=== PATIENT | male | born 1970 | race Caucasian/White ===

== ENCOUNTER 2024-07-19 08:06 | Inpatient (IN) ==
--- NOTE | 2024-07-19 08:42 | Emergency Department Note ---
Impression & Plan Alcohol withdrawal, Alcohol use, Homeless, Anxiety ED Provider Note NAME: JENIFFER VAZ AGE: 54 SEX: M : 1970 ARRIVES VIA: Walk-In INFORMANT: Patient, ED PROVIDER(S): Vincent Schmitz DO CHIEF COMPLAINT: Anxiety HPI: The patient is a 54-year-old male who presented to the emergency department for an evaluation of anxiety. The patient states that he was seen in our facility last evening for similar complaints. He does live in a longterm. He is homeless at this time. The patient does not take any medications but does use marijuana. The patient denies having any chest pain or difficulty breathing but does complain of anxiety as well as difficulty thinking. He states he wants to cut himself but he denies having any specific suicidal ideation. The patient denies hearing any voices. The patient drinks alcohol daily. He is also had issues with taking benzodiazepines chronically. The patient was seen in our facility last evening and discharged but he sat in our waiting room and then check back in because he is states his symptoms are getting worse. ROS: See above HPI for pertinent positives & negatives. A total of 10 systems reviewed and were otherwise negative. PAST MEDICAL HISTORY: See Below PAST SURGICAL HISTORY: See Below FAMILY HISTORY: See Below SOCIAL HISTORY: See Below HOME MEDICATIONS: See Below ALLERGIES: See Below VITALS: See Below PHYSICAL EXAMINATION: GENERAL: The patient is awake and alert. The patient is anxious appearing. EYES: The conjunctivae are clear. The pupils are round and reactive. EARS, NOSE, MOUTH AND THROAT: The nose is without any evidence of any deformity. NECK: The neck is nontender and supple. RESPIRATORY: Normal respiratory effort is noted there is no evidence of wheezing rhonchi or rales CARDIOVASCULAR: Tachycardic and regular heart sounds were noted to auscultation. GASTROINTESTINAL: The abdomen is soft. Abdomen is nontender. MUSCULOSKELETAL/EXTREMITIES: There is no evidence of gross deformity full range of motion is noted in the hips and shoulders. SKIN: There is no obvious evidence of any rash. There are no petechiae, pallor or cyanosis noted. NEUROLOGIC: Patient is awake alert and oriented x3 strength is symmetric patellar reflexes are 2+ bilaterally PSYCH: The patient makes poor eye contact mostly evaluation. The patient's affect is animated. The patient is very tangential with his thought process. The patient is currently denying any active suicidal ideation. MEDICAL DECISION MAKING: The patient is a 54-year-old male who presented to the emergency department for an evaluation of anxiety. The patient has mental health history. He also has a history of alcohol abuse. The patient was seen in our facility overnight no specific needs were identified and the patient was able to be discharged to home. The patient did not go home but stayed in our waiting room. He started to develop trouble with anxiety and checked back into the emergency department. He does appear to have signs of early alcohol withdrawal. He was treated in usual fashion. On reevaluation he was feeling much better. The patient was felt to be a good candidate for inpatient treatment. I discussed his condition with the on-call [facility]ist. They have agreed to evaluate the patient in the emergency department. Triage Nursing notes reviewed. Prior medical records reviewed Vital Signs: reviewed and remarkable for no significant abnormalities Differential diagnosis: Mood disorder, infection, hypoglycemia, electrolyte abnormalities, cardiac sources, intracerebral event, toxicologic, trauma, neurologic, as well as other pathologies. ER treatment provided: See below Diagnostics interpreted by me: ECG: EKG was obtained in the emergency department. My interpretation is normal sinus rhythm at 83 bpm. There is no acute ST segment abnormalities noted. There was no ectopy. This was compared to a tracing from November Cardiac Monitoring: An order was placed for continuous cardiac monitoring. The monitor shows a rate of 75 bpm with sinus rhythm.. Laboratory studies: As stated above and show below. Imaging studies: See below. Radiographic imaging was reviewed by myself Consultation(s): I discussed this case with Dr. Gonsales who is on-call for the [facility] group. Past Med/Surg History Problem List Anxiety (Acute) Thoughts of self harm Alcohol withdrawal (Acute) Homeless (Acute) Alcohol use (Acute) Medical History Dental abscess Dental caries Surgical History H/O tooth extraction Social History Smoking Status: Current every day smoker Hx Alcohol Use: Yes Preferred Language: Uruguayan marital status: Single current occupational status: unemployed Feels Safe at Home: Yes Gender Identity: Male Allergies Allergies Allergy/AdvReac Type Severity Reaction Status Date / Time No Known Allergies Allergy Verified 08/31/22 18:33 Home Meds Home Medications Medication Instructions Recorded Confirmed No Known Home Medications 07/18/24 07/19/24 Results & Data (ED) Vital Signs Vital Signs - 24 hr 07/19/24 08:07 07/19/24 08:40 07/19/24 08:58 Temperature 36.5 C Temperature Source Temporal Artery Scan Pulse Rate 109 H 86 Pulse Rate [Apical] 92 H Pulse Rate from SpO2 Sensor Pulse Rhythm Regular Respiratory Rate 18 14 19 Respiratory Effort / Characteristics Non-Labored Spontaneous Respiratory Depth Normal Blood Pressure 169/112 H Blood Pressure [Left Arm] 166/99 H Blood Pressure Mean 131 Blood Pressure Mean [Left Arm] 121 Blood Pressure Position [Left Arm] Sitting Pulse Oximetry 100 94 Oxygen Delivery Method Room Air Room Air Sepsis Recent Fever Within 48 Hours No Sepsis New/Unexplained Change in Mental Status N/A Sepsis Action Taken by Nursing No Action Required 07/19/24 09:06 07/19/24 10:42 07/19/24 11:00 Temperature Temperature Source Pulse Rate 94 H 73 Pulse Rate [Apical] 75 Pulse Rate from SpO2 Sensor 75 Pulse Rhythm Respiratory Rate 20 15 Respiratory Effort / Characteristics Non-Labored Spontaneous Respiratory Depth Normal Blood Pressure 137/93 Blood Pressure [Left Arm] 133/100 Blood Pressure Mean 107 Blood Pressure Mean [Left Arm] 111 Blood Pressure Position [Left Arm] Semi-fowlers Pulse Oximetry 97 98 Oxygen Delivery Method Room Air Room Air Sepsis Recent Fever Within 48 Hours Sepsis New/Unexplained Change in Mental Status Sepsis Action Taken by Usp Medications Current Medication List: was personally reviewed by me Laboratory Data Attestation: I reviewed the patient's lab results. 07/19/24 08:45 07/19/24 08:45 Lab Results 07/19/24 07/19/24 Range/Units 08:25 08:45 WBC 8.49 (4.8-10.8) K/ul RBC 5.27 (4.70-6.10) M/uL Hgb 15.8 (14.0-18.0) g/dl Hct 45.8 (42.0-52.0) % MCV 86.9 (80.0-100.0) fL MCH 30.0 (25.0-34.0) pg MCHC 34.5 (32.0-36.0) g/dL RDW Std Deviation 39.8 (36.4-46.3) fL RDW Coeff of [place] 12.5 (11.5-14.5) % Plt Count 326 (130-400) K/uL MPV 9.6 (9.4-12.4) fL Immature Gran % (Auto) 0.4 % Neut % (Auto) 67.6 % Lymph % (Auto) 25.0 % [place] % (Auto) 6.0 % Eos % (Auto) 0.6 % Baso % (Auto) 0.4 % Neut # (Auto) 5.75 (1.40-6.50) K/uL Lymph # (Auto) 2.12 (1.20-3.40) K/uL [place]ster # (Auto) 0.51 (0.11-0.59) K/uL Eos # (Auto) 0.05 (0.00-0.50) K/uL Baso # (Auto) 0.03 (0.00-0.20) K/uL Immature Gran # (Auto) 0.03 (0.01-0.20) K/uL PT 10.4 (9.0-12.0) Seconds INR 1.0 (0.9-1.1) Sodium 139 (136-145) mmol/L Potassium 3.9 (3.5-5.1) mmol/L Chloride 103 (98-107) mmol/L Carbon Dioxide 25 (21-32) mmol/L Anion Gap 11 (3-11) BUN 14 (6-23) mg/dl Creatinine 0.85 (0.6-1.4) mg/dl Est Cr Clr Drug Dosing 114.9 ml/min eGFR 104.55 BUN/Creatinine Ratio 16.5 (10-20) Glucose 91 (70-99(Fasting)) mg/dl Calcium 9.9 (8.6-10.3) mg/dl Magnesium 2.0 (1.7-2.4) mg/dl Total Bilirubin 1.0 (0.2-1.0) mg/dl AST 18 (13-39) U/L ALT 22 (7-52) U/L Alkaline Phosphatase 62 (34-104) U/L Total Creatine Kinase 61 (30-223) U/L Troponin I High Sens 3.2 (0-20) pg/ml Total Protein 8.0 (6.0-8.3) gm/dl Albumin 4.9 (3.4-5.0) gm/dl Globulin 3.1 (2.5-4.0) gm/dl Albumin/Globulin Ratio 1.6 (0.9-2) Lipase 18 (11-82) U/L Urine Color Dark Yellow Urine Appearance Clear (Clear) Urine pH 5.5 (4.5-7.5) Ur Specific [place] 1.026 (1.000-1.030) Urine Protein Trace H (Negative) Urine Glucose (UA) Negative (Negative) Urine Ketones 4+ H (Negative) Urine Blood Negative (Negative) Urine Nitrite Negative (Negative) Urine Bilirubin Negative (Negative) Urine Urobilinogen Negative (Negative) Ur Leukocyte Esterase Negative (Negative) Urine WBC (Auto) 0-5 (0-5) /hpf Urine RBC (Auto) 0-2 (0-2) /hpf U Hyaline Cast (Auto) 0-2 (0-2) /lpf U Epithel Cells (Auto) 0-2 (0-2) /hpf Urine Bacteria (Auto) None Seen (None Seen) Salicylates < 3.0 L (3.0-30) mg/dl Urine Opiates Screen Neg (Neg) Ur Methadone, Qual Neg (Neg) Urine Fentanyl Screen Neg (Neg) Acetaminophen < 3 L (10-30) ug/ml Urine Barbiturates Neg (Neg) Ur Phencyclidine (PCP) Neg (Neg) U Amphetamin/Meth Scrn Neg (Neg) MDMA (Ecstasy) Screen Neg (Neg) U Benzodiazepines Scrn Neg (Neg) Ur Cocaine Metabolite Neg (Neg) U Marijuana (THC) Screen Pos H (Neg) Ethyl Alcohol mg/dL < 10.0 (<10.0) mg/dl SARS-CoV-2, RNA, NAAT NEGATIVE (NEGATIVE) Administered Medications Discontinued Medications Sodium Chloride (Nss) 1,000 mls @ 999 mls/hr IV .Q1H1M ONE Stop: 07/19/24 09:35 Last Infusion: 07/19/24 09:51 Dose: Infused Documented By: Admin: 07/19/24 08:55 Dose: 999 mls/hr Documented By: MANJIT Thiamine HCl 200 mg/ Sodium (Chloride) 52 mls @ 210 mls/hr IV NOW STA Stop: 07/19/24 08:49 Last Infusion: 07/19/24 09:51 Dose: Infused Documented By: Admin: 07/19/24 09:27 Dose: 210 mls/hr Documented By: MANJIT Lorazepam (Lorazepam 1 Mg/1 Ml Syr Ed Inj Use) 1 mg IV ONE STA Stop: 07/19/24 08:36 Last Admin: 07/19/24 08:55 Dose: 1 mg Documented By: MANJIT Imaging Data Attestation: I personally reviewed and interpreted this imaging study as follows: My Impression: 1 view chest x-ray was obtained in the emergency department. My interpretation is no free air or definite infiltrate, final report below. Radiologist's Impression: Chest X-Ray 07/19/24 08:35 XR chest 1V portable CLINICAL HISTORY: medical clearance COMPARISON STUDY: Chest CT March 23, 2022. Chest radiograph May 30, 2024. FINDINGS: Lung volumes are normal. Lungs are clear. There is no pneumothorax or pleural effusion. Cardiac size is normal. Mediastinal contours are normal. There is no evidence for pulmonary edema. Multiple old right rib fractures are incidentally noted. IMPRESSION: No acute cardiopulmonary findings. ACT 112: Negative or not required by law. Electronically signed by: Rafa Soto M.D. 07/19/2024 9:16 AM Discharge Plan Visit Data Chief Complaint: Mental Health Evaluation Stated Complaint: MENTAL HEALTH EVAL/CRISIS ED Provider: Vincent Schmitz Discharge Problem: Alcohol withdrawal, Alcohol use, Homeless, Anxiety Patient Disposition: Being Evaluated by Hospitalist Forms Stand Alone Forms: [facility], Suicide Prevention Resources Prescriptions Prescriptions: No Action No Known Home Medications Referrals Referrals: Shannon Andrade [Primary Care Provider] -
[2024-07-19] MEDS: SODIUM CHLORIDE 0.9% 1,000 ML IV ONE (08:55)
[2024-07-19] MEDS: LORazepam 1 MG/1 ML SYR ED Inj Use IV STA (08:55)
[2024-07-19 09:17] LABS: Appearance Urine Clear (Clear); Bacteria Urine Automated None Seen (None Seen); Bilirubin Urine Negative (Negative); Blood Urine Negative (Negative); Cast Urine Automated 0-2 /lpf (0-2); Color Urine Dark Yellow; Epithelial Cell Urine Auto 0-2 /hpf (0-2); Glucose Urine UA Negative (Negative); Ketones Urine 4+ (Negative); Leukocyte Esterase Urine Negative (Negative); Nitrite Urine Negative (Negative); Protein Urine Trace (Negative); RBC Urine Automated 0-2 /hpf (0-2); Specific Gravity Urine 1.026 (1.000-1.030); Urobilinogen Urine Negative (Negative); WBC Urine Automated 0-5 /hpf (0-5); pH Urine 5.5 (4.5-7.5)
--- NOTE | 2024-07-19 09:18 | XRay Report ---
XR chest 1V portable CLINICAL HISTORY: medical clearance COMPARISON STUDY: Chest CT March 23, 2022. Chest radiograph May 30, 2024. FINDINGS: Lung volumes are normal. Lungs are clear. There is no pneumothorax or pleural effusion. Car diac size is normal. Mediastinal contours are normal. There is no evidence for pulmonary edema. Multi ple old right rib fractures are incidentally noted. IMPRESSION: No acute cardiopulmonary findings. ACT 112: Negative or not required by law. Electronically signed by: Rafa Soto M.D. 07/19/2024 9:16 AM
[2024-07-19 09:20] LABS: Basophils # (auto) 0.03 K/uL (0.00-0.20); Basophils % (auto) 0.4 %; Eosinophils # (auto) 0.05 K/uL (0.00-0.50); Eosinophils % (auto) 0.6 %; Hematocrit (blood only) 45.8 % (42.0-52.0); Hemoglobin 15.8 g/dl (14.0-18.0); Immature Granulocytes # (auto) 0.03 K/uL (0.01-0.20); Immature Granulocytes % (auto) 0.4 %; Lymphocytes # (auto) 2.12 K/uL (1.20-3.40); Mean Corpuscular Hgb Conc 34.5 g/dL (32.0-36.0); Mean Corpuscular Volume 86.9 fL (80.0-100.0); Mean Platelet Volume 9.6 fL (9.4-12.4); Monocytes # (auto) 0.51 K/uL (0.11-0.59); Neutrophils # (auto) 5.75 K/uL (1.40-6.50); Neutrophils % (auto) 67.6 %; Platelet Count 326 K/uL (130-400); RDW Coefficient of Variation 12.5 % (11.5-14.5); RDW Standard Deviation 39.8 fL (36.4-46.3); Red Blood Count 5.27 M/uL (4.70-6.10); White Blood Count 8.49 K/ul (4.8-10.8)
[2024-07-19] MEDS: THIAMINE HCL 200 MG in SODIUM CHLORIDE 0.9% 50 ML IV STA (09:27)
[2024-07-19 09:37] LABS: Albumin Globulin Ratio 1.6 (0.9-2); Albumin Level 4.9 gm/dl (3.4-5.0); BUN Creatinine Ratio 16.5 (10-20); Calcium 9.9 mg/dl (8.6-10.3); Creatinine Clr Calc Pharmacy 114.9 ml/min; Globulin 3.1 gm/dl (2.5-4.0); Potassium 3.9 mmol/L (3.5-5.1)
[2024-07-19 09:42] LABS: Troponin I High Sensitivity 3.2 pg/ml (0-20)
[2024-07-19 09:45] LABS: Prothrombin Time 10.4 Seconds (9.0-12.0)
[2024-07-19 09:57] LABS: Acetaminophen < 3 ug/ml (10-30); Salicylate < 3.0 mg/dl (3.0-30)
[2024-07-19 09:57] LABS: Amphetamines+Metham, Urine Neg (Neg); Barbiturates, Urine Neg (Neg); Benzodiazepine, Urine Neg (Neg); Cocaine, Urine Neg (Neg); Fentanyl, Urine Neg (Neg); MDMA (Ecstacy), Urine Neg (Neg); Marijuana, Urine Pos (Neg); Methadone, Urine Neg (Neg); Opiate, Urine Neg (Neg); Phencyclidine, Urine Neg (Neg)
--- NOTE | 2024-07-19 11:23 | History & Physical Report ---
Date of Service July 19, 2024 Assessment & Plan (1) Alcohol withdrawal: Plan: Currently appears non diaphoretic and no significant agitation or overly anxious, no hallucinations however patient seen after 1mg Lorazepam IV given by ER provider who assessed he was in withdrawal at that time with hypertension Patient also tells me he drinks 2L of vodka a day which puts him at significant risk of withdrawal although this is different from the CM note from last night when he said he was not drinking every day and would just drink 3-4 Four Lokos occasionally At this point lorazepam has been given prior to my assessment and current story he gives of significantly high alcohol use will admit him overnight on the at risk lorazepam protocol for withdrawal Do not give lorazepam if AWSS < 6 (2) Thoughts of self harm: Plan: He denies this to me but mentioned in the triage/ER notes therefore will have psychiatry assess him for both this and his ongoing anxiety Plan VTE Prophylaxis - low risk Diet - regular safe tray Disposition - admit to med/surg History of Present Illness Chief Complaint: Anxiety/agitation Primary Care Provider: Shannon Andrade Trell Sweeney is a 54-year-old male who presents to the ER with concerns for alcohol withdrawal. He reports drinking 2L vodka a day and having agitation and anxiety today after his last drink was yesterday afternoon. He was actually in the ER last night originally and per briefcase sewer notes at that time he states that he does not drink every day but did have Four Liang that day. He requested inpatient rehab although was informed that this was not warranted as he was only drinking 1/day. He changes story to say he might have 3-4 drinks on some days but denied to drinking alcohol every day. He was not in withdrawal at that time and was advised to follow-up as an outpatient for alcohol services. He did not meet criteria for inpatient psychiatric treatment. He was discharged but stayed in the waiting area of the emergency room. He then represented with a concern for anxiety and worsening symptoms. He was seen by the ER provider and said that he does drink alcohol daily. He also mentioned issues with taking benzodiazepines chronically although he denies this to me. He was suspected to be in alcohol withdrawal by the ER provider with hypertension and anxiety and therefore given lorazepam 1 mg IV with resolution of his symptoms. He also reported wanting to cut himself to the ER provider but denies any specific suicidal ideation. He denies any homicidal or suicidal ideation to myself. He is homeless and lives at [facility]" but per previous CM note has multiple complaints about staff and other guests there and is concerned about his housing situation. He denies any previous hospitalization for alcohol withdrawal and no prior alcohol withdrawal seizures. He has quit alcohol previously and reports shaking and anxiety symptoms when he does so. Allergies Allergy/AdvReac Type Severity Reaction Status Date / Time No Known Allergies Allergy Verified 08/31/22 18:33 Home Medications Medication Instructions Recorded Confirmed Type No Known Home Medications 07/18/24 07/19/24 History Past Med/Surg History Problem List Anxiety (Acute) Thoughts of self harm Alcohol withdrawal (Acute) Homeless (Acute) Alcohol use (Acute) Medical History Dental abscess Dental caries Surgical History H/O tooth extraction Social History Smoking Status: Current every day smoker Hx Alcohol Use: Yes Preferred Language: Cymro marital status: Single current occupational status: unemployed Feels Safe at Home: Yes Gender Identity: Male Review of Systems Review of Systems: All systems reviewed & are unremarkable except as noted in HPI & below Physical Exam Constitutional: well developed; + not well nourished and no acute distress Eyes: PERRL, conjunctivae normal, anicteric sclerae ENMT: external ear and nose normal, oropharynx normal Mouth: + poor dentition Respiratory: normal respiratory effort, lungs clear to auscultation Cardiovascular: RRR, no murmur, no edema Gastrointestinal (Abdomen): normal bowel sounds, soft, nontender, no hepatosplenomegaly Musculoskeletal: no cyanosis or clubbing, extremities motor strength 5/5 Skin: no rashes, warm and dry Neurologic: moves all extremities and awake; not confused Psychiatric: A+Ox3, euthymic affect Suicidal Thoughts: denies suicidal thoughts Homicidal Thoughts: denies homicidal thoughts Results & Data Results & Data Vital Signs (Past 12 Hours) Vital Signs Temp Pulse Pulse Resp BP BP Pulse Ox 07/19/24 10:42 73 20 137/93 97 07/19/24 09:06 94 H 07/19/24 08:58 86 19 07/19/24 08:40 92 H 14 166/99 H 94 07/19/24 08:07 36.5 C 109 H 18 169/112 H 100 O2 Del Method 07/19/24 10:42 Room Air 07/19/24 09:06 07/19/24 08:58 Room Air 07/19/24 08:40 Room Air 07/19/24 08:07 Laboratory Results Abnormal lab results 07/19/24 07/19/24 Range/Units 08:25 08:45 Urine Protein Trace H (Negative) Urine Ketones 4+ H (Negative) Salicylates < 3.0 L (3.0-30) mg/dl Acetaminophen < 3 L (10-30) ug/ml U Marijuana (THC) Screen Pos H (Neg) Diagnostic Findings XR chest 1V portable CLINICAL HISTORY: medical clearance COMPARISON STUDY: Chest CT March 23, 2022. Chest radiograph May 30. FINDINGS: Lung volumes are normal. Lungs are clear. There is no pneumothorax or pleural effusion. Cardiac size is normal. Mediastinal contours are normal. There is no evidence for pulmonary edema. Multiple old right rib fractures are incidentally noted. IMPRESSION: No acute cardiopulmonary findings. Medications Administered ER medications given: Lorazepam 1 mg IV Normal saline 1 L bolus Thiamine 200 mg IV Code Status & VTE Plan Code Status Full VTE Prophylaxis Plan VTE Prophylaxis will be ordered: Yes PG Care Time/CCT Total # of Minutes Spent Total Time Spent with Patient: Total time spent is greater than 50% in coordination of care (as documented) at patient's floor/unit and/or counseling patient: Coding Level of Care Code 05138 INT INP/OBS CARE 3/75MIN Diagnoses Alcohol withdrawal F10.939 Thoughts of self harm R45.89
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
[2024-07-20] MEDS: FOLIC ACID 1 MG TAB PO SCH (08:58)
[2024-07-20] MEDS: THIAMINE HCL 100 MG TAB PO SCH (08:58)
[2024-07-20] MEDS: LORazepam 2 MG/1 ML VIAL IV PRN (13:58)
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
--- NOTE | 2024-07-21 07:10 | Hospitalist Progress Note ---
Date of Service July 21, 2024 Assessment & Plan (1) Alcohol withdrawal: Plan: AWSS protocol, EtOH <10 on admission, last drink reported to be 2 days prior to coming to ER, endorses 4 years of 1-2L vodka consumption on average daily, no hx DTs, no prior treatment or rehab - psych consulted, does not meet inpatient psychiatric criteria as he is having no SI/HI, hallucinations, or delusions - patient not agreeable to gabapentin or naltrexone at this time, currently open to an SSRI if psych feel it is suitable Case Management has called his preferred rehab, [facility], and they will call pt tomorrow 07/22/24 for intake. (2) Anxiety: Plan: anxious with self-reported panic attacks that result in him resorting to alcohol use - will discuss methods of self-soothing in addition to considering stopping cannabis use as this could contribute to anxiety as well - psych consulted, see note for further history details and recommendations - he is not so willing to try gabapentin at this time, more willing to try SSRI but ideally would have a period of observation while initiating - will have Case Management set patient up with [facility] for outpatient psychiatry/therapy followup, can likely be started on SSRI with them (3) Thoughts of self harm: Plan: continues to deny thoughts of self-harm, SI, HI - psych consulted and determined no need for inpatient psych hospitalization - continue assessing daily (4) Cannabis abuse: Plan: positive THC on screen, endorses medical use but unclear if follows prescription dosing - case management for substance rehab - discuss as a possible contributor to anxiety Plan VTE Prophylaxis - low risk Diet - regular safe tray Disposition - admit to med/surg Admission and Anticipated Discharge Date Admission Date: July 19, 2024 Supervising Physician Co-Signing Physician Notes I personally examined the patient and verified arriaga points of history and exam, discussed case, and agree with decision making and plan documented by Dr. Mercado. Patient interested in rehabilitation for chronic alcohol use, case management assisting, update likely tomorrow. Patient states he uses alcohol to self medicate his untreated anxiety. Agree with trial of SSRI, discussed concerns about [facility] use of benzodiazepines with patient. Manny Cai was seen and evaluated at bedside, appearing in no acute distress this AM. He was in good spirits because he had recently received 0.5mg Ativan, praised the medication continually and said it's all he needs when he's outside of the hospital in order to avoid alcohol/cannabis. Very talkative again and difficult to interject, ultimately feels he is not addicted to alcohol but rather his alcohol/cannabis use is a "symptom" of his anxiety. States he is open to going on a medication for anxiety such as an SSRI, not interested in naltrexone as he feels it will not target the root of his drinking. Denies any symptoms of tremors, sweats, headaches, nausea/vomiting, unsteadiness, or hallucinations overnight or this AM, no PRNs overnight. States he wants to go to [facility] for rehab as he has heard good things about it. Review of Systems Review of Systems: per HPI Physical Exam Physical Exam: Constitutional: A&Ox3, appearing disheveled with messy hair and poor hygiene, no acute distress HEENT: NC/AT, PERRL b/l, anicteric sclerae CV: RRR, +s1/s2, no m/r/g; extremities well-perfused, no LE edema Resp: clear to auscultation b/l, no increased work of breathing GI: +BS, abdomen soft, nondistended, nontender to palpation MSK: 5/5 strength in all extremities, no gross deformities appreciated Skin: warm, dry, no rash Neuro: no tremors, no asterixis, no facial droop, speech intact, no focal neurologic deficits appreciated Psych: fair eye contact, no SI/HI, no hallucinations - speech rapid, tangential thoughts, vis ibly anxious when talking about his experience with alcohol and why his anxiety is the root cause of his drinking/cannabis use Results & Data Results & Data Vital Signs (Past 12 Hours) Vital Signs Temp Pulse Resp BP Pulse Ox O2 Del Method 07/21/24 03:30 36.6 C 60 18 129/88 99 Room Air 07/20/24 23:30 36.6 C 63 18 116/71 99 Room Air 07/20/24 19:30 36.8 C 67 18 114/72 96 Room Air Resident Activity Tracking Resident Involvement: Resident Care Provided Care Provided: Adult Hospital Medicine (1) Alcohol withdrawal Complication of substance-induced condition: uncomplicated Qualified Code(s): F10.930 - Alcohol use, unspecified with withdrawal, uncomplicated
[2024-07-21 07:25] LABS: Hematocrit (blood only) 41.5 % (42.0-52.0); Hemoglobin 14.3 g/dl (14.0-18.0); Mean Corpuscular Hemoglobin 29.7 pg (25.0-34.0); Mean Corpuscular Hgb Conc 34.5 g/dL (32.0-36.0); Mean Corpuscular Volume 86.1 fL (80.0-100.0); Mean Platelet Volume 9.5 fL (9.4-12.4); Platelet Count 280 K/uL (130-400); RDW Coefficient of Variation 12.3 % (11.5-14.5); RDW Standard Deviation 38.8 fL (36.4-46.3); Red Blood Count 4.82 M/uL (4.70-6.10); White Blood Count 8.04 K/ul (4.8-10.8)
[2024-07-21 07:47] LABS: Anion Gap 5 (3-11); BUN Creatinine Ratio 17.1 (10-20); Blood Urea Nitrogen 14 mg/dl (6-23); Calcium 8.9 mg/dl (8.6-10.3); Carbon Dioxide 26 mmol/L (21-32); Chloride 105 mmol/L (98-107); Creatinine Clr Calc Pharmacy 119.1 ml/min; Glucose 95 mg/dl (70-99(Fasting)); Sodium 136 mmol/L (136-145)
[2024-07-21] MEDS: LORazepam 2 MG/1 ML VIAL IV STA ×2 (07:57→16:27)
[2024-07-21 15:26] LABS: Marijuana Quant, GCMS Urine 805 ng/mL (<5)
--- NOTE | 2024-07-21 23:09 | Electrocardiogram Report ---
Test Reason : Blood Pressure : */* mmHG Vent. Rate : 83 BPM Atrial Rate : 83 BPM P-R Int : 120 ms QRS Dur : 80 ms QT Int : 372 ms P-R-T Axes : 60 37 55 degrees QTcB Int : 437 ms Normal sinus rhythm Normal ECG When compared with ECG of 30-Jun-2023 12:28, No significant change was found Confirmed by Charles Oviedo ([id number]) on 07/21/2024 11:09:16 PM Referred By: REFERRED SELF Confirmed By: Charles Oviedo
--- NOTE | 2024-07-22 07:05 | Hospitalist Progress Note ---
Date of Service July 22, 2024 Assessment & Plan (1) Alcohol withdrawal: Plan: AWSS protocol, EtOH <10 on admission, last drink reported to be 2 days prior to coming to ER, endorses 4 years of 1-2L vodka consumption on average daily, no hx DTs, no prior treatment or rehab - psych consulted, does not meet inpatient psychiatric criteria as he is having no SI/HI, hallucinations, or delusions - patient not agreeable to gabapentin or naltrexone at this time, currently open to an SSRI if psych feel it is suitable Case Management finding appropriate inpatient alcohol rehab facility - call made to [facility] in [place] ([phone]) - male bed available, patient provided with phone #: [phone] to complete intake (2) Anxiety: Plan: anxious with self-reported panic attacks that result in him resorting to alcohol use - will discuss methods of self-soothing in addition to considering stopping cannabis use as this could contribute to anxiety as well - psych consulted, see note for further history details and recommendations - he is not so willing to try gabapentin at this time, more willing to try SSRI but ideally would have a period of observation while initiating Case Management calling [facility] to set out outpatient psychiatry for management of anxiety (3) Thoughts of self harm: Plan: continues to deny thoughts of self-harm, SI, HI - psych consulted and determined no need for inpatient psych hospitalization - continue assessing daily (4) Cannabis abuse: Plan: positive THC on screen, endorses medical use but unclear if follows prescription dosing - case management for substance rehab - discuss as a possible contributor to anxiety Plan VTE Prophylaxis - low risk Diet - regular safe tray Disposition - admit to med/surg Admission and Anticipated Discharge Date Admission Date: July 19, 2024 Supervising Physician Co-Signing Physician Notes I personally examined the patient and verified all arriaga points of history and exam, discussed case, and agree with decision making with Dr Mercado physically feeling okay. Very interested in alcohol rehab in an inpatient type setting. Discussed with case management who is helping to facilitate. Vitals noted, in general he is awake and alert pleasant no distress. HEENT n ormocephalic atraumatic mucous membranes moist. Breathing unlabored no accessory muscle use good effort. Skin without rashes pallor or icterus. Neuro without focal deficits. Alcohol abuse/anxiety Working on inpatient rehab. Hopefully this will be able to be facilitated. Otherwise as above. Manny Cai was seen and evaluated at bedside, appearing well and in good spirits. Has only needed Ativan 0.5mg IV once this morning for anxiety. Denies any symptoms of withdrawal nor any particular discomfort. Still very talkative and rather difficult to redirect to current plan of awaiting placement. [facility] that he needs inpatient rehab for alcohol, no call from [facility], and it was found that they are an opioid rehab facility. Informed patient that case management will be on his case to find him an alcohol rehab facility. Continues to deny any symptoms of tremors, sweats, headaches, nausea/vomiting, unsteadiness, or hallucinations. Review of Systems Review of Systems: per HPI Physical Exam Physical Exam: Constitutional: A&Ox3, appearing disheveled with messy hair and poor hygiene, no acute distress HEENT: NC/AT, PERRL b/l, anicteric sclerae CV: RRR, +s1/s2, no m/r/g; extremities well-perfused, no LE edema Resp: clear to auscultation b/l, no increased work of breathing GI: +BS, abdomen soft, nondistended, nontender to palpation MSK: 5/5 strength in all extremities, no gross deformities appreciated Skin: warm, dry, no rash Neuro: no tremors, no asterixis, no facial droop, speech intact, no focal neurologic deficits appreciated Psych: fair eye contact, no SI/HI, no hallucinations - speech rapid, at times tangential thou ghts, no SI/HI Results & Data Results & Data Vital Signs (Past 12 Hours) Vital Signs Temp Pulse Resp BP Pulse Ox O2 Del Method 07/21/24 20:36 36.6 C 74 18 125/61 98 Room Air Resident Activity Tracking Resident Involvement: Resident Care Provided Care Provided: Adult Hospital Medicine (1) Alcohol withdrawal Complication of substance-induced condition: uncomplicated Qualified Code(s): F10.930 - Alcohol use, unspecified with withdrawal, uncomplicated
[2024-07-22 07:16] VITALS: RESP 16
[2024-07-22 08:04] LABS: Hematocrit (blood only) 42.3 % (42.0-52.0); Hemoglobin 14.8 g/dl (14.0-18.0); Mean Corpuscular Volume 85.8 fL (80.0-100.0); Mean Platelet Volume 9.4 fL (9.4-12.4); Platelet Count 280 K/uL (130-400); RDW Coefficient of Variation 12.3 % (11.5-14.5); RDW Standard Deviation 38.3 fL (36.4-46.3); Red Blood Count 4.93 M/uL (4.70-6.10); White Blood Count 8.08 K/ul (4.8-10.8)
[2024-07-22 08:27] LABS: BUN Creatinine Ratio 20.5 (10-20); Calcium 9.2 mg/dl (8.6-10.3); Creatinine Clr Calc Pharmacy 125.2 ml/min; Potassium 4.3 mmol/L (3.5-5.1)
[2024-07-22] MEDS: LORazepam 2 MG/1 ML VIAL IV STA (09:43)
--- NOTE | 2024-07-22 16:57 | Billing Data ---
Date of Service July 22, 2024 Coding Level of Care Code 87197 SUB INP/OBS CARE
[2024-07-22] MEDS: hydrOXYzine HCl 25 MG TAB PO PRN (17:57)
[2024-07-23 07:42] VITALS: BP 127/81; TEMP 97.9; O2SAT 98
--- NOTE | 2024-07-23 10:22 | Discharge Summary ---
Date of Service July 23, 2024 Admission HPI Per Admitting Provider Trell Sweeney is a 54-year-old male who presents to the ER with concerns for alcohol withdrawal. He reports drinking 2L vodka a day and having agitation and anxiety today after his last drink was yesterday afternoon. He was actually in the ER last night originally and per shoe parts caser notes at that time he states that he does not drink every day but did have [employer] [place] that day. He requested inpatient rehab although was informed that this was not warranted as he was only drinking 1/day. He changes story to say he might have 3-4 drinks on some days but denied to drinking alcohol every day. He was not in withdrawal at that time and was advised to follow-up as an outpatient for alcohol services. He did not meet criteria for inpatient psychiatric treatment. He was discharged but stayed in the waiting area of the emergency room. He then represented with a concern for anxiety and worsening symptoms. He was seen by the ER provider and said that he does drink alcohol daily. He also mentioned issues with taking benzodiazepines chronically although he denies this to me. He was suspected to be in alcohol withdrawal by the ER provider with hypertension and anxiety and therefore given lorazepam 1 mg IV with resolution of his symptoms. He also reported wanting to cut himself to the ER provider but denies any specific suicidal ideation. He denies any homicidal or suicidal ideation to myself. He is homeless and lives at [place]" but per previous CM note has multiple complaints about staff and other guests there and is concerned about his housing situation. He denies any previous hospitalization for alcohol withdrawal and no prior alcohol withdrawal seizures. He has quit alcohol previously and reports shaking and anxiety symptoms when he does so. Admission Exam Per Admitting Provider Constitutional: well developed; + not well nourished and no acute distress Eyes: PERRL, conjunctivae normal, anicteric sclerae ENMT: external ear and nose normal, oropharynx normal Mouth: + poor dentition Respiratory: normal respiratory effort, lungs clear to auscultation Cardiovascular: RRR, no murmur, no edema Gastrointestinal (Abdomen): normal bowel sounds, soft, nontender, no hepatosplenomegaly Musculoskeletal: no cyanosis or clubbing, extremities motor strength 5/5 Skin: no rashes, warm and dry Neurologic: moves all extremities and awake; not confused Psychiatric: A+Ox3, euthymic affect Suicidal Thoughts: denies suicidal thoughts Homicidal Thoughts: denies homicidal thoughts Principal Diagnosis desire for alcohol rehabilitation, anxiety Discharge Exam Constitutional: A&Ox3, appearing in good spirits with long hair but improved hygiene HEENT: NC/AT, PERRL b/l, anicteric sclerae CV: RRR, +s1/s2, no m/r/g; extremities well-perfused, no LE edema Resp: clear to auscultation b/l, no increased work of breathing GI: +BS, abdomen soft, nondistended, nontender to palpation MSK: 5/5 strength in all extremities, no gross deformities appreciated Neuro: no tremors, no asterixis, no facial droop, speech intact, no focal neurologic deficits appreciated Psych: fair eye contact, no SI/HI, no hallucinations - pressured speech, at times tangential thoughts, no SI/HI Discharge Data Allergies Allergy/AdvReac Type Severity Reaction Status Date / Time No Known Allergies Allergy Verified 08/31/22 18:33 Consultations 07/19/24 10:42 ED Decision to Admit Stat 07/19/24 18:05 Consult Psychiatry Routine Hospital Course (1) Alcohol withdrawal: AWSS protocol, EtOH <10 on admission, last drink reported to be 2 days prior to coming to ER, endorses 4 years of 1-2L vodka consumption on average daily, no hx DTs, no prior treatment or rehab - psych consulted, does not meet inpatient psychiatric criteria as he is having no SI/HI, hallucinations, or delusions 07/23/24: Going to [facility] for inpatient alcohol rehabilitation today 2pm, transportation by [facility] Encouraged to look for work for once he's out of inpatient rehab so we can keep occupied, with a sense of purpose, and source of income (2) Anxiety: anxious with self-reported panic attacks that result in him resorting to alcohol use - will discuss methods of self-soothing in addition to considering stopping cannabis use as this could contribute to anxiety as well - psych consulted, see note for further history details and recommendations - he is not so willing to try gabapentin at this time, more willing to try SSRI but ideally would have a period of observation while initiating [facility] for inpatient rehab 07/23/24; CM set pt up with [facility] for outpatient psychiatry/therapy for ongoing management of anxiety (3) Thoughts of self harm: continues to deny thoughts of self-harm, SI, HI - psych consulted and determined no need for inpatient psych hospitalization - continue assessing daily (4) Cannabis abuse: positive THC on screen, endorses medical use but unclear if follows prescription dosing - case management for substance rehab - discuss as a possible contributor to anxiety Plan VTE Prophylaxis - low risk Diet - regular safe tray Disposition - admit to med/surg Total Time Total Time Spent Total Time Spent (In Minutes): 45 Discharge Plan Discharge Items Patient Disposition: Transfer Inpatient Rehab Fac Reason For Visit: ALCOHOL WITHDRAWAL Discharge Diagnosis: desire for alcohol rehab, anxiety Activity: Per Instructions section Non-emergency contact: Primary Care Provider, Psychiatrist and Therapist Call non-emergency contact if: your symptoms worsen and your pain is not controlled Follow-up/Referrals: [facility] [Outside] (Call for intake appointment at your convenience. ) Shannon Andrade [Primary Care Provider] - Diet: Regular Addtl Attending Provider Instructions: You were seen and evaluated at [facility] for alcohol rehabilitation. You were placed on AWSS protocol but have not exhibited signs or symptoms of alcohol withdrawal, however you have been given sporadic doses of Ativan 0.5mg for anxiety. You called [facility] today 07/23/24 for intake and they have accepted you into their inpatient alcohol rehabilitation facility. Please follow up with [facility] for outpatient psychiatry and therapy followup so that your anxiety can continue to be managed when you are outside of the inpatient setting. You may continue taking hydroxyzine 25mg orally, 3x per day as needed for anxiety/insomnia. We will be giving you 15 pills with one refill permitted. We also encourage you to work on finding a job which can help keep you occupied, away from alcohol, help you maintain a sense of purpose, and give you a source of income. Thank you for allowing us to participate in your care. Pending Studies at Discharge: No Stand-Alone Forms: My [employer] Skilled Items Patient informed of condition?: Yes DNR: No Discharge Level of Care: Other Communicable Disease: No Discharge Prognosis: Improving Lines: None Urinary Catheter: No Medications and DC Order Prescriptions: No Action No Known Home Medications Discharge Orders: Discharge Order (Routine); Ordered 07/23/24 Ordered By: Yassine Pinto/Other Patient Handouts: Substance Abuse Rehab Program, Your Mental Health Safety Plan, Your Body's Response to Anxiety, Anxiety Disorders Tx, Signs of Marijuana Addiction, Anxiety Disorders Meds, ED Alcohol Withdrawal Admission Data Admit Date/Time: 07/19/24 11:10 Attending Provider: Mil Reis Admit Provider: Joe Gonsales Primary Care Provider: Shannon Andrade Other Providers: Joe oGnsales; Rukhsana Chand; Ousmane Koroma; Katelin Eng; Joanna Piedra; Michele Diaz; Viki Khanna Supervising Physician Co-Signing Physician Notes I personally examined the patient and verified all arriaga points of history and exam, discussed case, and agree with decision making with Dr Mercado Had not yet called for alcohol rehab intake. When I was in the room I asked him to get his phone and made sure he dialed the number. Later he had a bed at rehab today. Vitals noted, in general he is awake and alert pleasant no distress. HEENT normocephalic atraumatic mucous membranes moist. Breathing unlabored no accessory muscle use good effort. Skin without rashes pallor or icterus. Neuro without focal deficits. Alcohol abuse/anxiety For inpatient rehab today. Fortunately no significant withdrawal. Resident Activity Tracking Resident Involvement: Resident Care Provided Care Provided: Adult Hospital Medicine
[2024-07-23 12:47] VITALS: PULSE 69
--- NOTE | 2024-07-23 16:51 | Billing Data ---
Date of Service July 23, 2024 Coding Level of Care Code 34057 IN/OBS DISCH 30 MIN/LESS
== END 2024-07-23 14:30 | disposition alcohol treatment (31) | DRG 897 ==
LOC: ED 08:06 → EDINP 11:10 → SUATTDRO 11:10 → 3N 15:40